=== PATIENT | female | born 1970 | race Caucasian/White ===

== ENCOUNTER 2018-10-14 06:23 | Day surgery (SDC) | payer OTHER ==
[~2018-10-14 06:23] MED LIST: CIPROFLOXACIN 400 MG in D5W 200 ML IVPB
[2018-10-14] MEDS: LACTATED RINGER'S 1,000 ML IV (07:21)
[2018-10-14] MEDS ORDERED: LIDOCAINE 2% (SDV) 5 ML INJ (08:23)
[2018-10-14] MEDS ORDERED: PROPOFOL 20 ML (08:23)
[2018-10-14] MEDS ORDERED: ROCURONIUM 50 MG INJ (08:23)
[2018-10-14] MEDS ORDERED: FENTAnyl 50 MCG/ML VIAL (08:23)
[2018-10-14] MEDS ORDERED: CIPROFLOXACIN 400MG/D5W 200 ML (09:18)
[2018-10-14] MEDS ORDERED: DEXAMETHASONE 4 MG/ML 5 ML INJ (09:41)
[2018-10-14] MEDS ORDERED: ONDANSETRON 4 MG INJ (09:41)
[2018-10-14] MEDS ORDERED: SUGAMMADEX SODIUM 200 MG/2 ML VIAL IV (09:42)
[2018-10-14] MEDS ORDERED: FENTAnyl 50 MCG/ML VIAL IV ×2 (10:00)
[2018-10-14] MEDS ORDERED: OXYCODONE/ACETAMINOPHEN (5/325) TAB PO (10:00)
[2018-10-14] MEDS ORDERED: hydrALAzine 20 MG INJ IV (10:00)
[2018-10-14] MEDS ORDERED: LABETALOL HCL 20MG INJ IV (10:00)
[2018-10-14] MEDS ORDERED: MEPERIDINE 25 MG INJ IV (10:00)
[2018-10-14] MEDS ORDERED: ONDANSETRON 4 MG INJ IV (10:00)
[2018-10-14] MEDS: IOHEXOL 300MG/ML 30 ML BTL (10:05)
[2018-10-14] MEDS: FENTAnyl 50 MCG/ML VIAL IV (11:11)
[2018-10-14] MEDS: OXYCODONE/ACETAMINOPHEN (5/325) TAB PO (11:58)
== END 2018-10-14 12:53 | disposition home or self-care (01) ==
LOC: SDS 06:23
DX: N20.0 Calculus of kidney (principal); E78.5 Hyperlipidemia, unspecified
CPT/HCPCS: 52356; 84703